=== PATIENT | female | born 1985 | race Caucasian/White ===

== ENCOUNTER 2016-10-13 20:22 | Outpatient (CLI) | payer MEDICAID ==
[~2016-10-13] VITALS: Ht 149.9 cm; Wt 61.5 kg
[2016-10-13 20:35] VITALS: Ht 149.9 cm; Wt 61.5 kg
[2016-10-13 20:57] LABS: URINE BLOOD (Dip) POC Negative (NEGATIVE)
[2016-10-13 22:16] VITALS: BP 111/66; PULSE 114; RESP 18
[2016-10-13] MEDS ORDERED: LACTATED RINGER'S 1,000 ML IV SCH (22:17)
[2016-10-13 22:57] LABS: ADD UMIC YES; UR BILIRUBIN (Dip) 1+ (NEGATIVE); UR BLOOD (Dip) NEGATIVE (NEGATIVE); UR CLARITY CLOUDY (CLEAR); UR COLOR YELLOW (YELLOW); UR GLUCOSE (Dip) NEGATIVE (NEGATIVE); UR KETONES (Dip) 15 (NEGATIVE); UR LEUKOCYTE ESTERASE (Dip) NEGATIVE (NEGATIVE); UR NITRITE (Dip) NEGATIVE (NEGATIVE); UR TOTAL PROTEIN (Dip) TRACE (NEGATIVE); UR UROBILINOGEN (Dip) 1.0 E.U./dL (0.1-1.0)
[2016-10-13] MEDS ORDERED: ACETAMINOPHEN 325 MG TAB PO ONE (23:00)
--- NOTE | 2016-10-13 23:01 | QN ---
Documentation Comment iup 37 weeks co of lower back pain no NVFC good FM vss exam wnl nst reactive a/p iup 37 weeks false labor dc [place] ARACELIS SEWELL MD Oct 13, 2016 23:01
[2016-10-13 23:20] LABS: ICTOTEST NEGATIVE (NEGATIVE); UR SQUAMOUS EPITHELIAL CELL MANY
[2016-10-13 23:21] LABS: UR BACTERIA FEW
[2016-10-13 23:22] LABS: URINE RBCS 0-2 /HPF (0)
[2016-10-14] MEDS ORDERED: FERR134T PO (00:48)
[2016-10-14] MEDS ORDERED: PRENAT PO (00:48)
--- NOTE | 2016-10-14 07:46 | TRIAGE ---
OB Triage Datetime Report Generated by CPN: 10/14/2016 07:46 Datetime: 10/13/2016 20:37 Time of Arrival: 10/13/2016 20:18 EGA: 37.2 Arrived By: Wheelchair Arrived From: Home Chief Complaint: UC's, back pain, pressure since 194 Movement: Present Contractions: Occasional Time Contractions Began: 10/13/2016 19:45 Rupture of Membranes: Denies Vaginal Discharge: Denies Recent Sexual Intercouse: Denies Abdominal Trauma: Not Applicable Patient Complaints: Contractions; Back Pain; Other Initial Plan: EFM X2, UA
== END 2016-10-14 00:57 | disposition home or self-care (01) ==
LOC: L-D 20:22 → OBT 20:22
PROVIDERS: ATTEND Obstetrics & Gynecology
DX: O26.893 Other specified pregnancy related conditions, third trimester (principal); M54.9 Dorsalgia, unspecified; Z3A.37 37 weeks gestation of pregnancy
CPT/HCPCS: 36415; 81001; 96360; J7120; Z7500; Z7610; 81003; G0463

== ENCOUNTER 2016-10-22 16:15 | Inpatient (IN) | payer MEDICAID ==
[~2016-10-22] VITALS: Ht 149.9 cm; Wt 61.1 kg
[~2016-10-22 16:15] MED LIST: FERR134T PO; PRENAT PO
[2016-10-22 16:38] VITALS: BP 117/59; PULSE 110; RESP 20
[2016-10-22] MEDS ORDERED: LACTATED RINGER'S 1,000 ML IV ONE (17:00)
[2016-10-22] MEDS ORDERED: LACTATED RINGER'S 1,000 ML IV SCH (18:00)
[2016-10-22] MEDS ORDERED: TERBUTALINE 1 MG/ML INJ SC STA (18:15)
[2016-10-22] MEDS ORDERED: TERBUTALINE 0 ML ONE (18:19)
[2016-10-22] MEDS ORDERED: METHYLERGONOVINE 0.2 MG INJ IM PRN (18:30)
[2016-10-22] MEDS ORDERED: CARBOPROST 250 MCG INJ IM PRN (18:30)
[2016-10-22] MEDS ORDERED: OXYTOCIN 30 UNITS/LR 500 ML IV SCH (18:30)
[2016-10-22] MEDS ORDERED: MISOPROSTOL 200 MCG TAB PR PRN ×2 (18:30→23:30)
[2016-10-22] MEDS ORDERED: OXYTOCIN 30 UNITS/LR 500 ML IV PRN (18:30)
[2016-10-22 18:49] LABS: ADD SCAN DIFF NO
[2016-10-22 18:54] LABS: BASOPHILS % 0.4 % (0.0-2.0); EOSINOPHILS % 0.6 % (0.0-7.0); HEMATOCRIT 34.1 % (37.0-47.0); HEMOGLOBIN 12.3 g/dl (12.0-16.0); LYMPHOCYTES # 1.7 10^3/ul (0.8-2.9); LYMPHOCYTES % 25.4 % (15.0-51.0); MEAN CORPUSCULAR HEMOGLOBIN 33.2 pg (29.0-33.0); MEAN CORPUSCULAR HGB CONC 36.1 g/dl (32.0-37.0); MEAN CORPUSCULAR VOLUME 91.9 fl (82.0-101.0); MEAN PLATELET VOLUME 9.5 fl (7.4-10.4); MONOCYTE # 0.4 10^3/ul (0.3-0.9); MONOCYTES % 6.1 % (0.0-11.0); NEUTROPHIL # 4.5 10^3/ul (1.6-7.5); NEUTROPHILS % 67.1 % (39.0-77.0); PLATELET COUNT 208 10^3/UL (140-415); RED BLOOD COUNT 3.71 10^6/ul (4.20-5.40); RED CELL DISTRIBUTION WIDTH 12.9 % (11.5-14.5); WHITE BLOOD COUNT 6.7 10^3/ul (4.8-10.8)
[2016-10-22] MEDS: LACTATED RINGER'S 1,000 ML IV SCH ×2 (18:58→20:53)
[2016-10-22 19:07] LABS: INR 0.91; PROTIME 12.3 Sec (12.2-14.2)
[2016-10-22 19:08] LABS: PARTIAL THROMBOPLASTIN TIME 27.2 Sec (25.0-35.0)
--- NOTE | 2016-10-22 19:32 | TRIAGE ---
OB Triage Datetime Report Generated by CPN: 10/22/2016 19:32 Datetime: 10/22/2016 19:21 Assessment Type: Ongoing Assessment Maternal Assessment Level of Consciousness: Fully Conscious DTR's/Clonus: DTRs 2+; No Clonus Headache: Denies Blurred Vision: No Respiratory Effort: Unlabored; Regular Rhythm; Equal Expansion Breath Sounds, Left: Clear and Equal Breath Sounds, Right: Clear and Equal Nausea/Vomiting: Denies RUQ Epigastric Pain: Denies Lower Extremities Edema: None Degree: None Upper Extremities Edema: None Degree: None Facial Edema: None Fall Risk Assessment History of Falling: (0) No Secondary Diagnosis: (0) No Ambulatory Aid: (0) Bedrest/Nurse Assist IV Therapy: (0) No Gait: (0) Normal/Bedrest/Immobile Mental Status: (0) Oriented to Own Ability Fall Score: 0 Fall Risk Score Definition: No Risk: No action required Pain Assessment Pain Scale: 10 Pain Presence: Intermittent Pain Type: Contraction Pain Location: Abdomen; Back Pain Goal: 2 Pain Relief Measures: Comfort Measures Datetime: 10/22/2016 19:00 Labor Evaluation Frequency: 5-8 Monitor Mode: External Duration (sec)2399: 60-100 Quality: Mild Pattern: Normal: <= 5 Contractions in 10 Minutes Resting Tone [place]: Relaxed Heart Rate FHR Baseline Rate: 135 Monitor Mode: External US FHR Baseline Changes: No Baseline Change Variability: Moderate 6-25 bpm Accelerations: 15X15 Decelerations: None Category: Category I Pain Assessment Pain Scale: 10 Pain Presence: Intermittent Pain Type: Contraction Pain Location: Abdomen Datetime: 10/22/2016 17:12 Assessment Type: Triage Datetime: 10/22/2016 16:31 Time of Arrival: 10/22/2016 16:12 EGA: 38.4 Arrived By: Wheelchair Arrived From: Emergency Dept Chief Complaint: CONTRACTIONS STARTING AT 1430, WITH PAIN OF 10/10 Movement: Present Contractions: Regular Time Contractions Began: 10/22/2016 14:30 Contractions: 10 Rupture of Membranes: Denies Vaginal Bleeding: Normal Show Vaginal Discharge: Denies Abdominal Trauma: Not Applicable Patient Complaints: Contractions Initial Plan: EFMx2, SVE Datetime: 10/22/2016 16:22 Vaginal Exam Dilatation (cms): 0.5 Effacement (%): 0 Station: -3 Exam By: CKUNIYOSHI Vaginal Bleeding: None Cervix, Consistency: Moderate Cervix, Position: Posterior Presentation 'A': Cephalic Datetime: 10/22/2016 16:19 Stage of : OB Triage Assessment Type: Triage Maternal Assessment Level of Consciousness: Fully Conscious Headache: Denies Blurred Vision: No Respiratory Effort: Unlabored; Regular Rhythm; Equal Expansion Breath Sounds, Left: Clear and Equal Breath Sounds, Right: Clear and Equal Nausea/Vomiting: Denies RUQ Epigastric Pain: Denies Lower Extremities Edema: None Degree: None Upper Extremities Edema: None Degree: None Facial Edema: None Temperature Route: Oral Fall Risk Assessment History of Falling: (0) No Secondary Diagnosis: (0) No Ambulatory Aid: (0) Bedrest/Nurse Assist IV Therapy: (0) No Gait: (0) Normal/Bedrest/Immobile Mental Status: (0) Oriented to Own Ability Fall Score: 0 Fall Risk Score Definition: No Risk: No action required Pain Assessment Pain Scale: 10 Pain Presence: Intermittent Pain Type: Contraction Pain Location: Abdomen Datetime: 10/14/2016 01:30 Arrived From: Emergency Dept Movement: Present Rupture of Membranes: Denies Vaginal Discharge: Denies Abdominal Trauma: Not Applicable Initial Plan: EFM x2, SVE Datetime: 10/14/2016 00:00 Stage of : OB Triage Labor Evaluation Frequency: X4 Monitor Mode: External Duration (sec)2399: 80-110 Quality: Moderate Pattern: Normal: <= 5 Contractions in 10 Minutes Resting Tone [place]: Relaxed Heart Rate FHR Baseline Rate: 130 Monitor Mode: External US FHR Baseline Changes: No Baseline Change Variability: Moderate 6-25 bpm Accelerations: 15X15 Decelerations: None Category: Category I Datetime: 10/13/2016 23:00 Stage of : OB Triage Labor Evaluation Frequency: X4 Monitor Mode: External Duration (sec)2399: 80-110 Quality: Moderate Pattern: Normal: <= 5 Contractions in 10 Minutes Resting Tone [place]: Relaxed Heart Rate FHR Baseline Rate: 140 Monitor Mode: External US FHR Baseline Changes: No Baseline Change Variability: Moderate 6-25 bpm Accelerations: 15X15 Decelerations: None Category: Category I Datetime: 10/13/2016 22:00 Stage of : OB Triage Labor Evaluation Frequency: X5 Monitor Mode: External Duration (sec)2399: 80-110 Quality: Moderate Pattern: Normal: <= 5 Contractions in 10 Minutes Resting Tone [place]: Relaxed Heart Rate FHR Baseline Rate: 145 Monitor Mode: External US FHR Baseline Changes: No Baseline Change Variability: Moderate 6-25 bpm Accelerations: 15X15 Decelerations: None Category: Category I Datetime: 10/13/2016 20:44 Assessment Type: Triage Maternal Assessment Level of Consciousness: Fully Conscious DTR's/Clonus: DTRs 2+; No Clonus Headache: Denies Blurred Vision: No Respiratory Effort: Unlabored; Regular Rhythm; Equal Expansion Breath Sounds, Left: Clear and Equal Breath Sounds, Right: Clear and Equal Nausea/Vomiting: Denies RUQ Epigastric Pain: Denies Lower Extremities Edema: None Degree: None Upper Extremities Edema: None Degree: None Facial Edema: None Fall Risk Assessment History of Falling: (0) No Secondary Diagnosis: (0) No Ambulatory Aid: (0) Bedrest/Nurse Assist IV Therapy: (0) No Gait: (0) Normal/Bedrest/Immobile Mental Status: (0) Oriented to Own Ability Fall Score: 0 Fall Risk Score Definition: No Risk: No action required Datetime: 10/13/2016 20:37 EGA: 37.2 Time Provider Notified: 10/13/2016 21:52 Provider Notified: Dr Bowling
--- NOTE | 2016-10-22 20:14 | HP ---
Date/Time of Note Date/Time of Note DATE: 10/22/16 TIME: 20:10 OB - History Hx of Present Free Text/Dictation HISTORY OF PRESENT ILLNESS: 30 YO with IUP at 38.3 weeks with history of previous deliveries x 3, who desires to have repeat delivery. she presents with regular UCs. she is scheduled for repeat c/s in one hour because she ate earlier today. I am the Laborist. I discussed with the patient the risks, benefits, indications, and alternatives of procedure including but not limited to risks of infection, bleeding, damage to other organs, bowel, bladder, hernia formation, scar formation, possibility of blood transfusion, possible need for emergency hysterectomy. She was allowed to ask questions. All her questions were answered. Informed consent has been obtained. Care: Good Care Ultrasounds: Normal mid trimester US Obstetrical Complications: None Medical Complications: None Past Family/Social History * Past Medical, Surgical, Family and Obstetric Histories reviewed from chart. OB Admission Exam Vital Signs Vital Signs Vital Signs Date Time Temp Pulse Resp B/P Pulse Ox O2 Delivery O2 Flow Rate FiO2 10/22/16 16:38 97.7 110 20 117/59 98 Room Air Physical Exam HEENT: WNL Heart: Rhythm Normal Lungs: Clear, Equal Abdomen: WNL Extremities: Normal Reflexes: Normal Cervical Dilatation: Fingertip Effacement: 50% Last 72 hours Lab Results CBC & BMP 10/22/16 18:41 OB Assessment/Plan Other Assessment: Assessment: IUP 39 weeks h/o previuos Desires repeat Regular UCs Plan: Section DARIA DALEY MD Oct 22, 2016 20:14
[2016-10-22] MEDS ORDERED: CITRIC ACID/SODIUM CITRATE 15 ML CUP PO ONE (21:00)
[2016-10-22] MEDS ORDERED: OXYTOCIN 30 UNITS/LR 500 ML IV ONE ×2 (21:08→21:56)
[2016-10-22] MEDS ORDERED: morphine SULFATE/PF (10 MG/10 ML) INJ ONE (21:08)
[2016-10-22] MEDS ORDERED: KETOROLAC 30 MG INJ ONE (21:08)
[2016-10-22] MEDS ORDERED: METOCLOPRAMIDE 10 MG INJ ONE (21:08)
[2016-10-22] MEDS ORDERED: FENTAnyl 50 MCG/ML VIAL ONE (21:37)
[2016-10-22] MEDS ORDERED: DIPHENHYDRAMINE 50 MG INJ IV PRN ×2 (22:00→22:30)
[2016-10-22] MEDS ORDERED: MEPERIDINE 25 MG INJ IV PRN (22:00)
[2016-10-22] MEDS ORDERED: METOCLOPRAMIDE 10 MG INJ IV PRN (22:00)
[2016-10-22] MEDS ORDERED: ONDANSETRON 4 MG INJ IV PRN ×2 (22:00→22:30)
[2016-10-22] MEDS ORDERED: HYDROmorphONE (0.2 MG/ML) 10ML SYG IV PRN ×3 (22:00)
[2016-10-22] MEDS ORDERED: NALOXONE (0.4 MG/ML) INJ IV PRN (22:30)
[2016-10-22] MEDS ORDERED: HYDROmorphONE 1 MG/ML SYG IV PRN ×3 (22:30)
[2016-10-22] MEDS: CEFAZOLIN 2 GM/50 ML (PMX) 50 ML IV SCH (23:03)
--- NOTE | 2016-10-22 23:16 | OPR ---
Operative Report Planned Procedure Free Text/Dictation DATE OF OPERATION: PREOPERATIVE DIAGNOSES: 1. Term 2. uterine contractions 3. history of 3 previous births POSTOPERATIVE DIAGNOSES: 1. Same OPERATION PERFORMED: Repeat delivery SURGEON: Jeffery Skinner MD SPRAYER OPERATOR: Dr. Rivera ESTIMATED BLOOD LOSS: 700 mL. COMPLICATIONS: None. The risks, benefits, indications, alternatives of procedure including, but not limited to risk of infection, bleeding, damage to other organs, bowel, bladder, hernia formation, scar formation, possibility of blood transfusions were discussed with the patient. She was allowed to ask questions. All her questions were answered. Informed consent was obtained. DESCRIPTION OF PROCEDURE: She was taken to the operating room. Spinal anesthesia was induced. She was prepped and draped in the usual sterile fashion. Surgical time out one. Anesthesia was tested to be adequate. With permission from anesthesiologist, a knife was used to make a Pfannenstiel skin incision. The incision was taken down in layers. The fascia was cut, undermined and from the underlying muscle using sharp and blunt dissection. All the bleeders were cauterized. Peritoneum was entered bluntly. A low transverse incision was developed over the uterus. Amniotic fluid was clear and adequate. A viable in vertex presentation was delivered without any difficulty. The cord was clamped and cut, handed to awaiting team. Placenta was then delivered. Uterus was exteriorized, wrapped around a moist lap. Inside uterus was cleaned using a dry lap. All residual membranes were removed. The uterine incision was then closed using #1 Monocryl in 2 layers. The uterus was inserted back inside the abdominal cavity. Irrigation was done carefully. Careful evaluation of the uterine incision revealed no further bleeding. The tubal ligation sites were evaluated carefully. There was no bleeding. The peritoneum and rectus muscles and fascia were evaluated. All bleeders cauterized. Peritoneum was closed using 2-0 Monocryl. At this time, the count was correct. Rectus fascia was reapproximated using 2-0 Monocryl. Rectus fascia was closed using #1 Vicryl. Subcutaneous tissue was cleaned and irrigated. All bleeders cauterized and the skin closed using 4-0 Monocryl. All counts correct. Procedure date Oct 22, 2016 Post-Procedure Pt Condition post procedure: stable Disposition: PACU Physician Certification I, the undersigned physician, hereby certify that I have discussed the procedure described in this consent form with this patient (or the patient's legal digital sales representative), including: * The risk and benefits of the procedure; * Any adverse reactions that may reasonably be expected to occur; * Any alternative efficacious methods of treatment which may be medically viable ; * The potential problems that may occur during recuperation; * Potential for blood transfusion and associated risks/benefits; and * Any research or economic interest I may have regarding this treatment. I further certify that the patient/legally responsible person was encouraged to ask question and that all questions were answered. JEFFERY SKINNER MD Oct 22, 2016 23:16
[2016-10-22] MEDS: OXYTOCIN 30 UNITS/LR 500 ML IV SCH (23:30)
[2016-10-22] MEDS ORDERED: OXYCODONE/ACETAMINOPHEN (5/325) TAB PO PRN (23:30)
[2016-10-22] MEDS ORDERED: LANOLIN 7 GM TUBE TOP PRN (23:30)
[2016-10-22] MEDS ORDERED: NA PHOSPHATE/BIPHOS 133 ML ENEMA PR PRN (23:30)
[2016-10-23] MEDS: OXYTOCIN 30 UNITS/LR 500 ML IV SCH ×7 (00:04→23:30)
[2016-10-23 00:40] VITALS: BP 115/70; PULSE 75; RESP 18
[2016-10-23] MEDS: LACTATED RINGER'S 1,000 ML IV SCH ×6 (04:25→23:11)
[2016-10-23 04:50] VITALS: BP 111/64; PULSE 94; RESP 18
[2016-10-23] MEDS: IBUPROFEN 600 MG TAB PO SCH ×3 (05:53→12:00)
[2016-10-23 07:35] VITALS: BP 101/68; PULSE 84; RESP 18
[2016-10-23 08:16] LABS: ADD SCAN DIFF NO
[2016-10-23 08:18] LABS: BASOPHILS % 0.3 % (0.0-2.0); EOSINOPHILS % 0.2 % (0.0-7.0); HEMATOCRIT 27.4 % (37.0-47.0); HEMOGLOBIN 9.6 g/dl (12.0-16.0); LYMPHOCYTES # 1.5 10^3/ul (0.8-2.9); LYMPHOCYTES % 15.6 % (15.0-51.0); MEAN CORPUSCULAR HEMOGLOBIN 32.7 pg (29.0-33.0); MEAN CORPUSCULAR VOLUME 93.2 fl (82.0-101.0); MEAN PLATELET VOLUME 9.7 fl (7.4-10.4); MONOCYTE # 0.6 10^3/ul (0.3-0.9); MONOCYTES % 6.2 % (0.0-11.0); NEUTROPHIL # 7.3 10^3/ul (1.6-7.5); NEUTROPHILS % 77.4 % (39.0-77.0); PLATELET COUNT 170 10^3/UL (140-415); RED BLOOD COUNT 2.94 10^6/ul (4.20-5.40); RED CELL DISTRIBUTION WIDTH 12.9 % (11.5-14.5); WHITE BLOOD COUNT 9.4 10^3/ul (4.8-10.8)
--- NOTE | 2016-10-23 09:55 | PN ---
Date/Time of Note Date/Time of Note DATE: 10/23/16 TIME: 09:54 OB Subjective Subjective Subjective Post day 1 Afebrile vital signs are stable abdomen soft bowel sounds present lochia moderate incision dry in 24 hours post ambulation encouraged diet advanced as tolerated Laboratory Tests Test 10/22/16 18:41 10/23/16 07:48 White Blood Count 6.710^3/ul 9.410^3/ul Red Blood Count 3.7110^6/ul 2.9410^6/ul Hemoglobin 12.3g/dl 9.6g/dl Hematocrit 34.1% 27.4% Mean Corpuscular Volume 91.9fl 93.2fl Mean Corpuscular Hemoglobin 33.2pg 32.7pg Mean Corpuscular Hemoglobin Concent 36.1g/dl 35.0g/dl Red Cell Distribution Width 12.9% 12.9% Platelet Count 23342^3/UL 10650^3/UL Mean Platelet Volume 9.5fl 9.7fl Neutrophils % 67.1% 77.4% Lymphocytes % 25.4% 15.6% Monocytes % 6.1% 6.2% Eosinophils % 0.6% 0.2% Basophils % 0.4% 0.3% Nucleated Red Blood Cells % 0.0/100WBC 0.0/100WBC Neutrophils # 4.510^3/ul 7.310^3/ul Lymphocytes # 1.710^3/ul 1.510^3/ul Monocytes # 0.410^3/ul 0.610^3/ul Eosinophils # 0.010^3/ul 0.010^3/ul Basophils # 0.010^3/ul 0.010^3/ul Nucleated Red Blood Cells # 0.010^3/ul 0.010^3/ul Prothrombin Time 12.3Sec Prothrombin Time Ratio 1.0 INR International Normalized Ratio 0.91 Activated Partial Thromboplast Time 27.2Sec Current Medications Medications (Trade) Dose Ordered Sig/Ida Route PRN Reason Start Time Stop Time Status Last Admin Dose Admin Lactated Ringer's 1,000 ml @ 1,000 mls/hr Q1H ONCE IV 10/22/16 17:00 10/22/16 17:59 DC 10/22/16 17:06 Lactated Ringer's (Lr) 1,000 ml @ 125 mls/hr Q8H IV 10/22/16 18:00 10/22/16 18:57 DC 10/22/16 18:55 Terbutaline Sulfate 0.25 mg 0.25 mg ONCE STAT SC 10/22/16 18:15 10/22/16 18:20 DC Terbutaline Sulfate 0 ml @ ud STK-MED ONCE .ROUTE 10/22/16 18:19 10/22/16 18:20 DC Lactated Ringer's 1,000 ml @ 125 mls/hr Q8H IV 10/22/16 18:24 10/22/16 20:53 Cefazolin Sodium/ Dextrose 50 ml @ 100 mls/hr ONCE IV 10/22/16 18:30 Oxytocin/Lactated Ringer's 500 ml @ 125 mls/hr ONCE IV 10/22/16 18:30 Oxytocin/Lactated Ringer's 500 ml @ 0 mls/hr ONCE PRN IV For Hemorrhage Management 10/22/16 18:30 Methylergonovine Maleate (Methergine) 0.2 mg ONCE PRN [place] VAGINAL BLEEDING 10/22/16 18:30 Carboprost Tromethamine (Hemabate) 250 mcg ONCE PRN IM VAGINAL BLEEDING 10/22/16 18:30 Misoprostol 1000 mcg 1,000 mcg ONCE PRN [place] VAGINAL BLEEDING 10/22/16 18:30 Oxytocin/Lactated Ringer's 500 ml @ 125 mls/hr Q4H IV 10/22/16 19:30 10/23/16 00:04 Citric Acid/ Sodium Citrate (Bicitra) 30 ml PRE-PROCEDURE ONCE PO 10/22/16 21:00 10/22/16 21:01 DC Hydromorphone HCl (Dilaudid (Rec)) 0.2 mg PACU ORDER PRN IV MILD PAIN LEVEL 1-3 10/22/16 22:00 10/23/16 02:00 DC Hydromorphone HCl (Dilaudid (Rec)) 0.4 mg PACU ORDER PRN IV MODERATE PAIN LEVEL 4-6 10/22/16 22:00 10/23/16 02:00 DC Hydromorphone HCl (Dilaudid (Rec)) 0.6 mg PACU ORDER PRN IV SEVERE PAIN LEVEL 7-10 10/22/16 22:00 10/23/16 02:00 DC Ondansetron HCl (Zofran Inj) 4 mg PACU ORDER PRN IV NAUSEA AND/OR VOMITING 10/22/16 22:00 10/23/16 02:00 DC Metoclopramide HCl (Reglan) 10 mg PACU ORDER PRN IV NAUSEA AND/OR VOMITING 10/22/16 22:00 10/23/16 02:00 DC Meperidine HCl (Demerol) 25 mg PACU ORDER PRN IV POST-OP RIGORS 10/22/16 22:00 10/23/16 02:00 DC Diphenhydramine HCl (Benadryl) 25 mg PACU ORDER PRN IV PRURITUS 10/22/16 22:00 10/23/16 02:00 DC 10/23/16 00:02 Naloxone HCl (Narcan) 0.1 mg Q2M PRN IV FOR RESP RATE 8 OR LESS 10/22/16 22:30 10/23/16 22:29 Ketorolac Tromethamine (Toradol) 30 mg Q6H PRN IV PAIN 10/22/16 22:30 10/23/16 22:29 Hydromorphone HCl (Dilaudid) 1 mg Q3H PRN IV BREAKTHROUGH PAIN 10/22/16 22:30 10/23/16 22:29 Hydromorphone HCl (Dilaudid) 0.2 mg Q3H PRN IV PAIN LEVEL 1-5 10/22/16 22:30 10/23/16 22:29 Hydromorphone HCl (Dilaudid) 0.4 mg Q3H PRN IV PAIN LEVEL 6-10 10/22/16 22:30 10/23/16 22:29 Diphenhydramine HCl (Benadryl) 25 mg Q6H PRN IV ITCHING 10/22/16 22:30 10/23/16 22:29 Ondansetron HCl 4 mg 4 mg Q6H PRN IV NAUSEA AND/OR VOMITING 10/22/16 22:30 10/23/16 22:29 Lactated Ringer's (Lr) 1,000 ml @ 125 mls/hr Q8H IV 10/22/16 23:11 10/23/16 04:25 Oxycodone/ Acetaminophen (Percocet (5/ 325)) 1 tab Q4H PRN PO PAIN LEVEL 4-6 10/22/16 23:30 Oxycodone/ Acetaminophen (Percocet (5/ 325)) 2 tab Q4H PRN PO PAIN LEVEL 7-10 10/22/16 23:30 Ibuprofen (Motrin) 600 mg Q6 PO 10/23/16 00:00 Simethicone (Mylicon) 160 mg Q8H PRN PO DISTENSION/GAS/BLOATING 10/22/16 23:30 Senna/Docusate Sodium (Senokot-S) 1 tab BID PO 10/23/16 09:00 Sodium Biphosphate/ Sodium Phosphate (Fleet Enema) 133 ml DAILY PRN [place] CONSTIPATION 10/22/16 23:30 Lanolin (Xbk-S-Vueyug) 1 applic BEDSIDE MEDICATION PRN TOP BEDSIDE FOR JOI TO NIPPLES 10/22/16 23:30 10/23/16 06:31 Diphtheria/ Tetanus/Acell Pertussis (Adacel) 0.5 ml ONCE ONCE IM* 10/25/16 09:00 10/25/16 09:01 Measles/Mumps/ Rubella Vaccine Live (Mmr Ii Vaccine) 0.5 ml ONCE ONCE SC* 10/25/16 09:00 10/25/16 09:01 Misoprostol (Cytotec) 1,000 mcg ONCE PRN [place] VAGINAL BLEEDING 10/22/16 23:30 NICKY FARLEY MD Oct 23, 2016 09:55
[2016-10-23] MEDS: SENNA/DOCUSATE NA (8.6MG/50MG) TAB PO SCH ×2 (10:40→21:35)
[2016-10-23] MEDS: KETOROLAC 30 MG INJ IV PRN ×2 (10:44→16:43)
[2016-10-23 11:40] VITALS: BP 109/57; PULSE 86; RESP 18
[2016-10-23 15:30] VITALS: BP 113/61; PULSE 78; RESP 18
[2016-10-23 20:00] VITALS: BP 118/67; PULSE 84; RESP 16
[2016-10-23] MEDS: OXYCODONE/ACETAMINOPHEN (5/325) TAB PO PRN (21:36)
[2016-10-24] MEDS: IBUPROFEN 600 MG TAB PO SCH ×4 (01:15→17:33)
[2016-10-24] MEDS: LACTATED RINGER'S 1,000 ML IV SCH ×6 (02:24→22:52)
[2016-10-24] MEDS: OXYTOCIN 30 UNITS/LR 500 ML IV SCH ×6 (03:22→22:52)
[2016-10-24 04:00] VITALS: BP 103/59; PULSE 76; RESP 18
--- NOTE | 2016-10-24 07:16 | PN ---
Date/Time of Note Date/Time of Note DATE: 10/23/16 TIME: 06:46 anesthesia note: A 30 year female s/p spinal duramorph pod#1 is doing well, no Back pain, itching , headache, n/V.pain is controlled. care per surgery team. Assessment/Plan VTE Prophylaxis VTE Prophylaxis Intervention: SCD's Lines/Catheters IV [facility] ([facility] Saline Lock Exam/Review of Systems Vital Signs Vitals Vital Signs Date Time Temp Pulse Resp B/P Pulse Ox O2 Delivery O2 Flow Rate FiO2 10/24/16 04:00 97.8 76 18 103/59 Room Air 10/23/16 19:26 98 21 Intake and Output 10/23/16 10/23/16 10/24/16 14:59 22:59 06:59 Intake Total 1850 ml 3000 ml Output Total 2000 ml 3500 ml 1000 ml Balance -150 ml -500 ml -1000 ml Results Result Diagram: 10/23/16 0748 Results 24 hrs Laboratory Tests Test 10/23/16 07:48 White Blood Count 9.4 # Red Blood Count 2.94 #L Hemoglobin 9.6 #L Hematocrit 27.4 L Mean Corpuscular Volume 93.2 Mean Corpuscular Hemoglobin 32.7 Mean Corpuscular Hemoglobin Concent 35.0 Red Cell Distribution Width 12.9 Platelet Count 170 Mean Platelet Volume 9.7 Neutrophils % 77.4 H Lymphocytes % 15.6 Monocytes % 6.2 Eosinophils % 0.2 Basophils % 0.3 Nucleated Red Blood Cells % 0.0 Neutrophils # 7.3 Lymphocytes # 1.5 Monocytes # 0.6 Eosinophils # 0.0 Basophils # 0.0 Nucleated Red Blood Cells # 0.0 Medications Medications Current Medications Lactated Ringer's 1,000 ml @ 125 mls/hr Q8H IV Last administered on 10/22/16t 20:53; Admin Dose 125 MLS/HR; Start 10/22/16 at 18:24 Cefazolin Sodium/ Dextrose 50 ml @ 100 mls/hr ONCE IV ; Start 10/22/16 at 18:30 Oxytocin/Lactated Ringer's 500 ml @ 125 mls/hr ONCE IV ; Start 10/22/16 at 18: 30 Oxytocin/Lactated Ringer's 500 ml @ 0 mls/hr ONCE PRN IV For Hemorrhage Management; Start 10/22/16 at 18:30 Methylergonovine Maleate (Methergine) 0.2 mg ONCE PRN IM VAGINAL BLEEDING; Start 10/22/16 at 18:30 Carboprost Tromethamine (Hemabate) 250 mcg ONCE PRN IM VAGINAL BLEEDING; Start 10/22/16 at 18:30 Misoprostol 1000 mcg 1,000 mcg ONCE PRN [place] VAGINAL BLEEDING; Start 10/22/16 at 18:30 Oxytocin/Lactated Ringer's 500 ml @ 125 mls/hr Q4H IV Last administered on 00:04; Admin Dose 125 MLS/HR; Start 10/22/16 at 19:30 Lactated Ringer's (Lr) 1,000 ml @ 125 mls/hr Q8H IV Last administered on 13:52; Admin Dose 125 MLS/HR; Start 10/22/16 at 23:11 Oxycodone/ Acetaminophen (Percocet (5/ 325)) 1 tab Q4H PRN PO PAIN LEVEL 4-6; Start 10/22/16 at 23:30 Oxycodone/ Acetaminophen (Percocet (5/ 325)) 2 tab Q4H PRN PO PAIN LEVEL 7-10 Last administered on 10/23/16 21:36; Admin Dose 2 TAB; Start 10/22/16 at 23:30 Simethicone (Mylicon) 160 mg Q8H PRN PO DISTENSION/GAS/BLOATING; Start at 23:30 Senna/Docusate Sodium (Senokot-S) 1 tab BID PO Last administered on 10/23/16 21:35; Admin Dose 1 TAB; Start 10/23/16 at 09:00 Sodium Biphosphate/ Sodium Phosphate (Fleet Enema) 133 ml DAILY PRN [place] CONSTIPATION; Start 10/22/16 at 23:30 Diphtheria/ Tetanus/Acell Pertussis (Adacel) 0.5 ml ONCE ONCE IM* ; Start at 09:00; Stop 10/25/16 at 09:01 Measles/Mumps/ Rubella Vaccine Live (Mmr Ii Vaccine) 0.5 ml ONCE ONCE SC* ; Start 10/25/16 at 09:00; Stop 10/25/16 at 09:01 Misoprostol (Cytotec) 1,000 mcg ONCE PRN [place] VAGINAL BLEEDING; Start 10/22/16 at 23:30 Ibuprofen (Motrin) 600 mg Q6 PO Last administered on 10/24/16t 05:42; Admin Dose 600 MG; Start 10/24/16 at 00:00 SHYANN GÓMEZ MD Oct 24, 2016 07:16
[2016-10-24 08:00] VITALS: BP 115/70; PULSE 83; RESP 19
[2016-10-24] MEDS: SENNA/DOCUSATE NA (8.6MG/50MG) TAB PO SCH ×2 (09:50→21:14)
[2016-10-24] MEDS: OXYCODONE/ACETAMINOPHEN (5/325) TAB PO PRN ×3 (09:51→22:15)
[2016-10-24] MEDS ORDERED: NA PHOSPHATE/BIPHOS 133 ML ENEMA PR ONE (12:30)
--- NOTE | 2016-10-24 12:31 | PN ---
Date/Time of Note Date/Time of Note DATE: 10/24/16 TIME: 12:30 OB Subjective Subjective Subjective Post day 2 Afebrile vital signs stable abdomen soft incision healing and dry lochia moderate bowel sounds present no bowel movement enema ordered ambulation encouraged NICKY FARLEY MD Oct 24, 2016 12:31
[2016-10-24 16:00] VITALS: BP 118/71; PULSE 67; RESP 18
[2016-10-24 20:00] VITALS: BP 98/60; PULSE 62; RESP 16
[2016-10-24] MEDS: CEFAZOLIN 2 GM/50 ML (PMX) 50 ML IV SCH (22:54)
[2016-10-25] MEDS: IBUPROFEN 600 MG TAB PO SCH ×3 (00:13→11:15)
[2016-10-25] MEDS: LACTATED RINGER'S 1,000 ML IV SCH ×2 (01:26→06:34)
[2016-10-25] MEDS: OXYTOCIN 30 UNITS/LR 500 ML IV SCH ×2 (03:30→06:35)
[2016-10-25 04:00] VITALS: BP 101/65; PULSE 67; RESP 20
[2016-10-25] MEDS: OXYCODONE/ACETAMINOPHEN (5/325) TAB PO PRN (07:41)
[2016-10-25 07:48] VITALS: BP 116/69; PULSE 62; RESP 18
--- NOTE | 2016-10-25 08:56 | PD.PPDC ---
OFFSET PRESS OPERATOR Discharge Instruction Condition Patient Condition: Good Diet Diet: Resume Regular Diet Activity/Restrictions Activity: Normal Activity May Shower Restrictions: No Exercising No Lifting No Driving No Sexual Activity Nothing in the Vagina No Kosse No Tampons, douche Wound/Drain Care Instructions Wound/Drain Care Instructions: Remove Steri Strips in 1 week Follow-up Follow-up with Physician: Day/Days Provider Information: Appointment clinic in 5 days for check Return to clinic for EQUIPMENT LEAD Instructions: Fever greater than 101 Chills Worsening abdominal pain Excessive Vaginal Bleeding More than 2 pads per hour Unable to tolerate diet OB Instructions: Breast Tenderness Depression Blurried Vision Headache Surgical Instructions: Incisional Drainage Incisional Redness NICKY FARLEY MD Oct 25, 2016 08:56
[2016-10-25] MEDS ORDERED: MEASLES,MUMPS,RUBELLA VACCINE INJ SC* ONE (09:00)
[2016-10-25] MEDS ORDERED: DIPHTH/TET/ACEL PERTUSS (ADULT) 0.5 ML VIAL IM* ONE (09:00)
--- NOTE | 2016-10-25 09:00 | DS ---
Date/Time of Note Date/Time of Note DATE: 10/25/16 TIME: 08:59 Discharge Summary Admission/Discharge Info Admit Date/Time Oct 22, 2016 at 18:30 Discharge Date/Time October 25, 2006 at 8:50 AM Discharge Diagnosis Post repeat date 3 Patient Condition: Good Procedures Repeat Hx of Present Illness Term history of previous Hospital Course Satisfactory uneventful Home Meds Reported Medications Multivit/Min/Fol Ac/Iron/Pren* ( S*) 1 Tab Tab, 1 TAB PO DAILY, TAB 10/14/16 Discontinued Reported Medications Ferrous Sulfate (Iron) 134 Mg Tablet, 134 MG PO DAILY, TAB 10/14/16 Follow-up Plan Appointment clinic in 5 days to discontinue andre Primary Care Provider Care Physician No Primary Time spent on discharge: < 30 minutes NICKY FARLEY MD Oct 25, 2016 09:00
[2016-10-25] MEDS: SENNA/DOCUSATE NA (8.6MG/50MG) TAB PO SCH (11:15)
== END 2016-10-25 14:00 | disposition home or self-care (01) | DRG 766 ==
LOC: OBT 16:15 → L-D 16:16 → OBT 18:30 → L-D 21:19 → PP1 10-23 00:54
PROVIDERS: ADMIT Obstetrics & Gynecology; ATTEND Obstetrics & Gynecology
PROC: 10D00Z1 Extraction of Products of Conception, Low, Open Approach (ICD-10-PCS; principal; 2016-10-22)
DX: O34.219 Maternal care for unspecified type scar from previous cesarean delivery (principal); Z37.0 Single live birth; Z3A.38 38 weeks gestation of pregnancy
CPT/HCPCS: 36415; 85025; 85610; 85730; 86592; 86850; 86900; 86901; 86920; 90715; 94760; 96360; 99464; G0463; J0690; J1200; J1885; J2274; J2590; J2765; J3010; J3105; J7120